=== PATIENT | female | born 1960 | race Caucasian/White ===

== ENCOUNTER 2018-07-19 17:41 | Outpatient (REF) | payer MEDICAID, SELFPAY ==
--- NOTE | 2018-07-19 17:00 | PAPFT_PTH ---
PATIENT: Demetrice Hoff LOC: [facility]#:[id number] AGE/SX: 57/F ROOM: RE07/19/[address]: Jose Cruz Garcia : 1960 BED: DIS: 07/19/2018 SPEC #: [id number] RECD: 07/20/18 12:49 STATUS: DINORAH REMora #: [id number] LANDON: 07/19/18 17:[address]: Jose Cruz Garcia DEPT: [facility] Cytology RECD BY: Gabriela Perkins Tissues: 1 - CX/ENDOCX FOR PAP SMEARS Procedures: PAP THIN PREP/[facility] Screening HPV DNA PROBE Comments: [id number] (CHLAMYDIA/GC)
[2018-07-23 13:57] LABS: Chlamydia Result Negative; GC Result Negative; Specimen Description SEE COMMENTS
== END 2018-07-19 17:42 ==
LOC: NCHCN 17:41
PROVIDERS: PCP Family Medicine; Visit Provider Family Medicine
DX: Z00.00 Encounter for general adult medical examination without abnormal findings (principal); Z11.3 Encounter for screening for infections with a predominantly sexual mode of transmission; Z12.4 Encounter for screening for malignant neoplasm of cervix; Z11.51 Encounter for screening for human papillomavirus (HPV)
CPT/HCPCS: 87491; 87591; 88142; 87624

== ENCOUNTER 2019-04-25 10:49 | Outpatient (REF) | payer MEDICAID, SELFPAY ==
[2019-04-26 12:38] LABS: ALT 22 U/L (12-78); AST 15 U/L (15-37); Albumin 3.5 g/dL (3.4-5.0); Alkaline Phosphatase 107 U/L (46-116); Anion Gap 6.7 mmol/L (3-11); BUN 15 mg/dL (7-18); Bilirubin, Total 0.4 mg/dL (0.2-1.0); CO2 30.3 mmol/L (21.0-32.0); Calcium 9.2 mg/dL (8.5-10.1); Chloride 105 mmol/L (98-107); Cholesterol 230 mg/dL (50-200); Glucose 86 mg/dL (70-100); HDL Cholesterol 80 mg/dL (40-60); LDL CHOLESTEROL 121 mg/dL (<100); Potassium 4.5 mmol/L (3.5-5.1); Sodium 142 mmol/L (136-145); TSH 0.87 uIU/mL (0.358-3.74); Total Protein 6.6 g/dL (6.4-8.2); Triglyceride 87 mg/dL (30-150)
== END 2019-04-25 11:09 ==
LOC: NCHCN 10:49
PROVIDERS: PCP Family Medicine; Visit Provider Registered Nurse
DX: E03.9 Hypothyroidism, unspecified (principal); Z79.899 Other long term (current) drug therapy
CPT/HCPCS: 80053; 80061; 83721; 84443

== ENCOUNTER 2019-07-03 10:40 | Outpatient (REF) | payer MEDICAID, SELFPAY ==
[2019-07-03 22:01] LABS: Abs Immature Grans 0.01 k/cumm (0.0-0.09); Absolute Basophil Count 0.01 k/cumm (0.0-0.2); Absolute Eosinophil Count 0.15 k/cumm (0.0-0.7); Absolute Lymphocyte Count 1.88 k/cumm (1.2-3.4); Absolute Monocyte Count 0.44 k/cumm (0.11-0.7); Absolute Neutrophil Count 2.49 k/cumm (1.2-6.7); Basophils % 0.2; HCT 40.5 % (36.0-46.0); HGB 13.3 g/dL (12.0-15.5); Immature Grans % 0.2; Lymphocytes % 37.8; Mean Corp. HGB Concentration 32.8 g/dL (32.0-36.0); Mean Corpuscular Hemoglobin 29.4 pg (27.0-33.0); Mean Corpuscular Volume 89.6 fL (80-95); Mean Platelet Volume 11.2 fL (8.0-11.0); Monocytes % 8.8; Platelet Count 274 x1000/uL (130-400); RBC 4.52 m/cumm (4.00-5.20); RBC Distribution Width 12.9 % (11.7-14.6); White Blood Cell Count 4.98 k/cumm (4.4-10.8)
[2019-07-03 22:38] LABS: Vitamin B12 355 pg/mL (193-986)
[2019-07-04 05:46] LABS: Vitamin D 25 Total 41.3 ng/ml (30-100)
== END 2019-07-03 11:00 ==
LOC: NCHCN 10:40
PROVIDERS: PCP Family Medicine; Visit Provider Nurse Practitioner Family
DX: F41.8 Other specified anxiety disorders (principal); Z92.21 Personal history of antineoplastic chemotherapy
CPT/HCPCS: 82306; 82607; 85025

== ENCOUNTER 2019-10-09 22:01 | Outpatient (REF) | payer MEDICAID, SELFPAY ==
[2019-10-09 22:23] LABS: ALT 20 U/L (14-59); AST 9 U/L (15-37); Albumin 3.6 g/dL (3.4-5.0); Alkaline Phosphatase 83 U/L (46-116); Anion Gap 7.9 mmol/L (3-11); BUN 18 mg/dL (7-18); Bilirubin, Total 0.5 mg/dL (0.2-1.0); CO2 29.1 mmol/L (21.0-32.0); Calcium 9.3 mg/dL (8.5-10.1); Chloride 106 mmol/L (98-107); Glucose 63 mg/dL (70-100); Magnesium 1.8 mg/dL (1.8-2.4); Potassium 4.4 mmol/L (3.5-5.1); Sodium 143 mmol/L (136-145); Total Protein 6.6 g/dL (6.4-8.2)
== END 2019-10-09 22:21 ==
LOC: NCHCN 22:01
PROVIDERS: PCP Family Medicine; Visit Provider Nurse Practitioner Community Health
DX: R94.31 Abnormal electrocardiogram [ECG] [EKG] (principal)
CPT/HCPCS: 80053; 83735; 84443

== ENCOUNTER 2020-01-06 17:24 | Outpatient (REF) | payer MEDICAID, SELFPAY ==
--- NOTE | 2020-01-06 16:30 | PAPFT_PTH ---
PATIENT: Demetrice Hoff LOC: [facility]#:[id number] AGE/SX: 59/F ROOM: RE01/06/[address]: Lulú Malik : 1960 BED: DIS: 01/06/2020 SPEC #: [id number] RECD: 01/07/20 12:34 STATUS: DINORAH REQ #: [id number] LANDON: 01/06/20 16:[address]: Lulú Malik DEPT: [facility] Cytology RECD BY: Gabriela Perkins ENTERED: 01/07/20 12:34 SP TYPE: PAPFT OTHR DR: Jose Cruz Garcia Tissues: 1 - CX/ENDOCX FOR PAP SMEARS Procedures: PAP THIN PREP/[facility] Screening HPV DNA PROBE Comments: [id number]
== END 2020-01-06 17:44 ==
LOC: NCHCN 17:24
PROVIDERS: PCP Family Medicine; Visit Provider Nurse Practitioner Community Health
DX: Z12.4 Encounter for screening for malignant neoplasm of cervix; Z11.51 Encounter for screening for human papillomavirus (HPV)
CPT/HCPCS: 88142; 87624

== ENCOUNTER 2020-09-28 20:29 | Outpatient (REF) | payer MEDICAID, SELFPAY ==
[2020-09-28 21:17] LABS: HGB 13.4 g/dL (11.2-15.7); MCH 29.1 pg (27.0-33.0); MCHC 31.9 % (32.0-36.0); MCV 91.3 fL (80-95); MPV 11.3 fL (8.0-11.0); Platelet Count 305 10^3/uL (130-400); RDW 13.1 % (11.7-14.6); RDW-SD 43.9 fL; WBC 8.95 10^3/uL (4.4-10.8)
[2020-09-28 21:36] LABS: ALT 16 U/L (14-59); AST 19 U/L (15-37); Albumin 3.8 g/dL (3.4-5.0); Alkaline Phosphatase 101 U/L (46-116); Anion Gap 9.4 mmol/L (3-11); BUN 10 mg/dL (7-18); Bilirubin, Total 0.5 mg/dL (0.2-1.0); CO2 24.6 mmol/L (21.0-32.0); Calcium 9.6 mg/dL (8.5-10.1); Chloride 105 mmol/L (98-107); Glucose 100 mg/dL (74-106); Potassium 4.3 mmol/L (3.5-5.1); Sodium 139 mmol/L (136-145); TSH 1.05 uIU/mL (0.36-3.74); Total Protein 6.8 g/dL (6.4-8.2)
== END 2020-09-28 20:49 ==
LOC: NCHCN 20:29
PROVIDERS: PCP Family Medicine; Visit Provider Nurse Practitioner Community Health
DX: Z85.850 Personal history of malignant neoplasm of thyroid (principal); E03.9 Hypothyroidism, unspecified
CPT/HCPCS: 80053; 85027; 84443

== ENCOUNTER 2021-09-17 11:59 | Outpatient (REF) | payer MEDICAID, SELFPAY ==
[2021-09-17 22:10] LABS: TSH 2.52 uIU/mL (0.36-3.74)
== END 2021-09-17 12:00 | disposition home or self-care (01) ==
LOC: NCHCN 11:59
PROVIDERS: PCP Family Medicine; Visit Provider Nurse Practitioner Community Health
DX: E03.9 Hypothyroidism, unspecified (principal)
CPT/HCPCS: 84443

== ENCOUNTER 2022-09-07 15:14 | Outpatient (REF) | payer MEDICAID, SELFPAY ==
[2022-09-07 15:43] LABS: MCH 28.8 pg (27.0-33.0); MCHC 31.7 % (32.0-36.0); MCV 91 fL (80-95); MPV 11.2 fL (8.0-11.0); Platelet Count 318 10^3/uL (130-400); RBC 4.51 10^6/uL (3.93-5.22); RDW 12.6 % (11.7-14.6); RDW-SD 41.7 fL; WBC 6.11 10^3/uL (4.4-10.8)
[2022-09-07 16:03] LABS: ALT 24 U/L (14-59); AST 15 U/L (15-37); Alkaline Phosphatase 108 U/L (46-116); Anion Gap 4.1 mmol/L (3-11); BUN 20 mg/dL (7-18); Bilirubin, Total 0.3 mg/dL (0.2-1.0); CO2 31.9 mmol/L (21.0-32.0); CREATININE 0.9 mg/dL (0.55-1.02); Calcium 9.4 mg/dL (8.5-10.1); Chloride 104 mmol/L (98-107); Estimated GFR 71.83 (mL/min/1.73m2); Glucose 100 mg/dL (74-106); Magnesium 2.1 mg/dL (1.8-2.4); Potassium 4.6 mmol/L (3.5-5.1); Sodium 140 mmol/L (136-145); TSH 0.31 uIU/mL (0.36-3.74); Total Protein 7.2 g/dL (6.4-8.2)
[2022-09-08 05:54] LABS: Vitamin D 25 Total 38.9 ng/mL (30-100)
== END 2022-09-07 15:15 | disposition home or self-care (01) ==
LOC: NCHCN 15:14
PROVIDERS: PCP Family Medicine; Visit Provider Family Medicine
DX: Z85.850 Personal history of malignant neoplasm of thyroid (principal); M54.59 Other low back pain; Z85.3 Personal history of malignant neoplasm of breast; Z00.00 Encounter for general adult medical examination without abnormal findings; Z79.899 Other long term (current) drug therapy
CPT/HCPCS: 80053; 82306; 85027; 83735; 84443

== ENCOUNTER 2022-12-01 13:30 | Outpatient (REF) | payer MEDICAID, SELFPAY | END 2022-12-01 13:31 | disposition home or self-care (01) | LOC: NCHCN 13:30 | PROVIDERS: PCP Family Medicine; Visit Provider Family Medicine | DX: E03.9 Hypothyroidism, unspecified (principal) | CPT/HCPCS: 84443 ==